=== PATIENT | female | born 1960 | race Two or more races ===

== ENCOUNTER 2017-01-18 14:36 | Inpatient (IN) | payer MEDICAID ==
[~2017-01-18] VITALS: Ht 170.2 cm; Wt 87.3 kg
[2017-01-18] VITALS (11 sets, daily range): BP systolic 113–143; BP diastolic 67–81
[2017-01-18] MEDS ORDERED: Naloxone 2 MG in D5W 500ml 498 ML IV SCH ×4 (15:00→22:34)
[2017-01-18] MEDS ORDERED: Naloxone 1mg/ml 2ml ONE ×3 (15:06→18:38)
[2017-01-18 15:23] LABS: BASOPHILS % (AUTO) 1.1 % (0.0-2.0); EOSINOPHILS % (AUTO) 3.8 % (0.0-3.0); LYMPHOCYTES % (AUTO) 36.1 % (20.0-45.0); MEAN CORPUSCULAR HEMOGLOBIN 30.7 PG (27.0-31.0); MEAN CORPUSCULAR HGB CONC 32.1 G/DL (32.0-36.0); MEAN CORPUSCULAR VOLUME 96 FL (80-99); MEAN PLATELET VOLUME 6.6 FL (6.5-10.1); MONOCYTES % (AUTO) 5.3 % (1.0-10.0); NEUTROPHILS % (AUTO) 53.6 % (45.0-75.0); PLATELET COUNT 258 K/UL (150-450); RED BLOOD COUNT 4.12 M/UL (4.20-5.40); RED CELL DISTRIBUTION WIDTH 12.5 % (11.6-14.8)
[2017-01-18] MEDS ORDERED: Naloxone 1mg/ml 2ml IVP ONE (15:30)
[2017-01-18 15:38] LABS: ACETAMINOPHEN < 10 ug/mL (10-30); ALANINE AMINOTRANSFERASE 20 U/L (3-33); ALBUMIN/GLOBULIN RATIO 1.4 (1.0-2.7); ALCOHOL < 10 mg/dL; ANION GAP 11 (5-15); ASPARTATE AMINO TRANSFERASE 24 U/L (5-40); CALCIUM 9.4 mg/dL (8.6-10.2); CARBON DIOXIDE 26 mEQ/L (20-30); CHLORIDE 106 mEQ/L (98-107); CREATININE 0.9 mg/dL (0.5-0.9); GLOMERULAR FILTRATION RATE > 60 mL/min (>60); HEMOLYSIS 58; POTASSIUM 4.2 mEQ/L (3.4-4.9); SODIUM 143 mEQ/L (135-145); TOTAL PROTEIN 6.8 g/dL (6.6-8.7); TROPONIN I < 0.30 ng/mL (<=0.30)
[2017-01-18 15:57] LABS: AMMONIA 12 umol/L (11-51)
[2017-01-18] MEDS ORDERED: UNOBMED (17:38)
--- NOTE | 2017-01-18 18:00 | Emergency Room Report ---
History of Present Illness General Chief Complaint: Altered Level of Consciousness Source: EMS Present Illness HPI Patient presents via EMS after alleged opiate overdose. Not breathing and blue when they got to patient. "Friends" performing CPR. Patient awakened some what with narcan. c/o chest pain (post CPR). Denies SI. Apparently had oxycodone with other medications. No other history available. Allergies: Coded Allergies: CODEINE (Verified Allergy, Unknown, 01/18/17) Patient History Limited by: medical condition Past Medical History: see triage record Social History: Reports: drug use, smoking Social History Narrative home Reviewed Nursing Documentation: PMH: Agreed, PSxH: Agreed Nursing Documentation-PMH Past Medical History: No History, Except For History Of Psychiatric Problem: Yes - Depression Review of Systems All Other Systems: limited Physical Exam Vital Signs Date Time Temp Pulse Resp B/P Pulse Ox O2 Delivery O2 Flow Rate FiO2 01/18/17 14:36 97.3 92 12 138/93 94 Room Air 01/18/17 17:20 2.0 Sp02 EP Interpretation: reviewed, abnormal - as interpreted by me General Appearance: lethargic, Stupor Head: normocephalic Eyes: bilateral eye PERRL - pinpoint, bilateral eye Scleral Injection ENT: moist mucus membranes - + gag Neck: supple Respiratory: lungs clear, other - chest wall pain, no crepetance, bradypnea Cardiovascular #1: regular rate, rhythm Cardiovascular #2: 2+ radial (R) Gastrointestinal: normal inspection, non tender, no mass, non-distended, abnormal bowel sounds - decreased Musculoskeletal: back normal Neurologic: sensory intact, motor weakness, other - stupor, does respond to pain, eyes closed, not vocalize Psychiatric: other - stupor Reflexes: 1+ knee (R), 1+ knee (L) Skin: warm/dry, other - pasty Procedures Critical Care Time Critical Care Time Total Critical Care Time: 30 min bedside evaluation and treatment excludes procedures (EKG). Reason for critical care: narcotic overdose, narcan drip, repeated evaluations and monitoring of respiratory status Possible complications: hypotension, hypertension, SD, shock, arrhythmias, metabolic acidosis, end organ damage, respiratory failure. Interventions: narcan push, narcan drip re-evaluations Course: Pt with opiate excess. Paramedics had improved mentation after narcan. Repeated obtundation in ED. Attempt to hold drip. Repeated bradypnea. Chest tender, possible fx fx contusions - no pneumo. No CHF. Discussed with admitting MD. Consultations: nursing staff, EMS, radiology Performed by: Dr. Spencer Tolerated: well condition = critical Medical Decision Making Diagnostic Impression: Primary Impression: Opiate overdose Qualified Codes: T40.601A - Poisoning by unspecified narcotics, accidental ( unintentional), initial encounter Additional Impressions: Polypharmacy Chest wall contusion - cannot exclude fracutre ER Course Patient presents after apparent overdose and complaining about chest pain to paramedics post narcan after CPR was performed on her. Differential includes polypharmacy overdose, rib contusion, rib fractures, anoxic brain injury, brain trauma amongst others. Since the time she's arrived in the emergency department she become more obtunded. Therefore Narcan will be given to the patient and also the patient will be started on Narcan drip. In addition CT, chest x-ray, EKG and labs will be performed. There is no history of intent to do self-harm. She is unable to answer this at this point to me. The patient's respiratory rate increased up to 18 after Narcan. The Narcan drip was begun. The patient's respiratory rate started to decline again and the Narcan drip was titrated upwards. CT and chest x-ray were unremarkable. Tox screen was positive for amphetamines and opiates. Patient was still quite obtunded even on Narcan drip and therefore was admitted to the intensive care unit. The patient was presented to Dr. Lopez. Laboratory Tests Test 01/18/17 14:53 01/18/17 15:25 01/18/17 15:45 White Blood Count 10.0 K/UL (4.8-10.8) Red Blood Count 4.12 M/UL (4.20-5.40) L Hemoglobin 12.6 G/DL (12.0-16.0) Hematocrit 39.4 % (37.0-47.0) Mean Corpuscular Volume 96 FL (80-99) Mean Corpuscular Hemoglobin 30.7 PG (27.0-31.0) Mean Corpuscular Hemoglobin Concent 32.1 G/DL (32.0-36.0) Red Cell Distribution Width 12.5 % (11.6-14.8) Platelet Count 258 K/UL (150-450) Mean Platelet Volume 6.6 FL (6.5-10.1) Neutrophils (%) (Auto) 53.6 % (45.0-75.0) Lymphocytes (%) (Auto) 36.1 % (20.0-45.0) Monocytes (%) (Auto) 5.3 % (1.0-10.0) Eosinophils (%) (Auto) 3.8 % (0.0-3.0) H Basophils (%) (Auto) 1.1 % (0.0-2.0) Sodium Level 143 mEQ/L (135-145) Potassium Level 4.2 mEQ/L (3.4-4.9) Chloride Level 106 mEQ/L (98-107) Carbon Dioxide Level 26 mEQ/L (20-30) Anion Gap 11 (5-15) Blood Urea Nitrogen 14 mg/dL (7-23) Creatinine 0.9 mg/dL (0.5-0.9) Estimate Glomerular Filtration Rate > 60 mL/min (>60) Glucose Level 99 mg/dL (74-106) Calcium Level 9.4 mg/dL (8.6-10.2) Total Bilirubin < 0.2 mg/dL (0.0-1.2) Aspartate Amino Transferase (AST) 24 U/L (5-40) Alanine Aminotransferase (ALT) 20 U/L (3-33) Alkaline Phosphatase 90 U/L (35-104) Ammonia 12 umol/L (11-51) Total Creatine Kinase 86 U/L (26-140) Troponin I < 0.30 ng/mL (<=0.30) Total Protein 6.8 g/dL (6.6-8.7) Albumin 4.0 g/dL (3.5-5.2) Globulin 2.8 g/dL Albumin/Globulin Ratio 1.4 (1.0-2.7) Salicylates Level < 1 mg/dL (10-30) L Acetaminophen Level < 10 ug/mL (10-30) L Serum Alcohol < 10 mg/dL Lactic Acid Level 1.40 mmol/L (0.66-2.22) Urine Opiates Screen Positive (NEGATIVE) H Urine Barbiturates Screen Negative (NEGATIVE) Phencyclidine (PCP) Screen Negative (NEGATIVE) Urine Amphetamines Screen Positive (NEGATIVE) H Urine Benzodiazepines Screen Negative (NEGATIVE) Urine Cocaine Screen Negative (NEGATIVE) Urine Marijuana (THC) Screen Negative (NEGATIVE) EKG Diagnostic Results Rate: normal Rhythm: NSR ST Segments: no acute changes Rhythm Strip Diag. Results EP Interpretation: yes Rhythm: NSR, no PVC's, no ectopy Chest X-Ray Diagnostic Results Chest X-Ray Diagnostic Results : Chest X-Ray Ordered: Yes # of Views/Limited/Complete: 1 View Indication: Other EP Interpretation: Yes Interpretation: no effusion, no pneumothorax, other - poor inspiration Impression: Other Interpreting ER Provider: Electronically signed by Gaurav Spencer MD CT/MRI/US Diagnostic Results CT/MRI/US Diagnostic Results : Imaging Test Ordered: head Impression no bleed, fx. Sinusitis Last Vital Signs Date Time Temp Pulse Resp B/P Pulse Ox O2 Delivery O2 Flow Rate FiO2 01/19/17 02:30 77 16 141/83 100 Nasal Cannula 3.0 01/19/17 00:00 98.7 01/18/17 22:22 32 Status: improved Disposition: ADMITTED INPATIENT Condition: Critical Referrals: [facility] (PCP) Gaurav Spencer M.D. Jan 18, 2017 18:00
[2017-01-18] MEDS ORDERED: GABAPENTIN800 MG ORAL (18:51)
[2017-01-18] MEDS ORDERED: BUPROPION XL300 MG ORAL (18:51)
[2017-01-18] MEDS ORDERED: LEVOTHYROXINE25 MCG ORAL (18:51)
[2017-01-18] MEDS ORDERED: NORCO 7.5-3251 EACH ORAL (18:51)
[2017-01-18] MEDS ORDERED: Zolpidem 5mg tab ORAL PRN (22:15)
[2017-01-18] MEDS: D5 1/2NS 1,000 ML IV SCH (23:19)
[2017-01-19] VITALS (28 sets, daily range): BP systolic 104–150; BP diastolic 61–94
[2017-01-19] MEDS: D5 1/2NS 1,000 ML IV SCH (08:11)
--- NOTE | 2017-01-19 08:13 | Diagnostic Imaging Report ---
Indication: ALOC Technique: Continuous helical CT scanning of the head was performed without intravenous contrast material. Axial and coronal 5 mm sections were generated. Dose: Total Dose Length Product - DLP [address] Dose Index - CTDIvol(s) 70.38 mGy. Comparison:None. Findings: The ventricular system is normal in size and configuration. There is no shift of midline structures. No abnormal extra-axial fluid collections are noted. There is no evidence of intracerebral bleeding. No other abnormal high or low density areas are noted within the brain. There is a calcified mass in the right maxillary sinus. Impression: Calcified concretion in the right maxillary sinus. Otherwise negative CT scan of the head without contrast material. The above report is concordant with preliminary reading by [employer] . The CT scanner at [facility] is accredited by the [employer] and the scans are performed using protocols designed to limit radiation exposure to as low as reasonably achievable to attain images of sufficient resolution adequate for diagnostic evaluation.
--- NOTE | 2017-01-19 09:04 | Diagnostic Imaging Report ---
Indication: Chest pain Technique: XRAY CHEST 1 V Comparison: None. Findings: The patient has taken a poor inspiration. The cardiomediastinal silhouette is normal. The lungs are clear. There is no evidence of pleural fluid. The bony structures are unremarkable. Impression: Poor inspiratory chest. Otherwise grossly negative.
--- NOTE | 2017-01-19 10:46 | History & Physical ---
History and Physical History & Physicial seen on 01/18/17 Dic # [id number] GABRIEL MARTINS Jan 19, 2017 10:46
--- NOTE | 2017-01-19 10:49 | General Progress Note ---
Assessment/Plan Problem List: (1) Opiate overdose ICD Codes: T40.601A - Poisoning by unspecified narcotics, accidental ( unintentional), initial encounter SNOMED: 577833869 Qualifiers: Qualified Codes: T40.601A - Poisoning by unspecified narcotics, accidental ( unintentional), initial encounter (2) Change in mental status ICD Codes: R41.82 - Altered mental status, unspecified SNOMED: 472338050 Status Narrative MS at baseline Assessment/Plan Start diet Out of ICU DC IVF Ambulate Subjective Allergies: Coded Allergies: CODEINE (Verified Allergy, Unknown, 01/18/17) Subjective awake and alert Objective Last 24 Hour Vital Signs Date Time Temp Pulse Resp B/P Pulse Ox O2 Delivery O2 Flow Rate FiO2 01/19/17 10:30 80 14 116/61 98 Nasal Cannula 3.0 01/19/17 10:00 75 14 134/66 97 Nasal Cannula 3.0 01/19/17 09:30 98.2 70 14 143/84 98 Nasal Cannula 3.0 01/19/17 09:00 72 13 133/76 98 Nasal Cannula 3.0 01/19/17 08:30 74 13 144/75 98 Nasal Cannula 3.0 01/19/17 08:00 72 01/19/17 08:00 74 13 130/71 98 Nasal Cannula 3.0 01/19/17 07:30 73 14 121/75 99 Nasal Cannula 3.0 01/19/17 07:00 74 15 141/72 97 Nasal Cannula 3.0 01/19/17 06:30 75 15 142/76 98 Nasal Cannula 3.0 01/19/17 06:00 75 16 138/71 97 Nasal Cannula 3.0 01/19/17 05:30 75 16 141/82 97 Nasal Cannula 3.0 01/19/17 05:00 75 17 133/80 98 Nasal Cannula 3.0 01/19/17 04:30 74 16 143/79 98 Nasal Cannula 3.0 01/19/17 04:00 73 01/19/17 04:00 98.6 76 17 137/74 100 Nasal Cannula 3.0 01/19/17 03:30 75 17 141/79 100 Nasal Cannula 3.0 01/19/17 03:00 77 19 137/68 100 Nasal Cannula 3.0 01/19/17 02:30 77 16 141/83 100 Nasal Cannula 3.0 01/19/17 02:00 78 16 133/78 99 Nasal Cannula 3.0 01/19/17 01:30 76 17 134/83 99 Nasal Cannula 3.0 01/19/17 01:00 77 15 150/86 98 Nasal Cannula 3.0 01/19/17 00:30 75 14 108/91 98 Nasal Cannula 3.0 01/19/17 00:00 98.7 76 17 134/76 98 Nasal Cannula 3.0 01/19/17 00:00 76 01/18/17 23:30 77 15 127/78 98 Nasal Cannula 3.0 01/18/17 23:00 78 14 126/71 97 Nasal Cannula 3.0 01/18/17 22:30 76 14 135/76 98 Nasal Cannula 3.0 01/18/17 22:22 Nasal Cannula 3.0 32 01/18/17 22:22 97 Nasal Cannula 3.0 32 01/18/17 22:00 77 17 130/78 96 Nasal Cannula 3.0 01/18/17 21:50 78 01/18/17 21:45 77 14 141/72 94 Nasal Cannula 3.0 01/18/17 21:30 97.6 76 15 136/78 97 Nasal Cannula 3.0 01/18/17 21:10 97.3 84 16 113/67 96 Room Air 2.0 01/18/17 20:28 97.3 84 16 113/67 96 Room Air 01/18/17 18:28 77 14 130/79 98 Nasal Cannula 2.0 01/18/17 17:20 81 13 125/74 97 Nasal Cannula 2.0 01/18/17 16:18 86 13 143/75 94 Room Air 01/18/17 15:02 85 15 Room Air 01/18/17 14:59 85 15 137/81 95 Room Air 01/18/17 14:36 97.3 92 12 138/93 94 Room Air Intake and Output 01/18/17 01/19/17 19:00 07:00 Intake Total 375.0 ml 1320 ml Output Total 950 ml Balance 375.0 ml 370 ml Intake Oral 50 ml IV Total 375.0 ml 1270 ml Output Urine Total 950 ml # Voids 1 Laboratory Tests 01/18/17 14:53: White Blood Count 10.0, Red Blood Count 4.12L, Hemoglobin 12.6, Hematocrit 39.4 , Mean Corpuscular Volume 96, Mean Corpuscular Hemoglobin 30.7, Mean Corpuscular Hemoglobin Concent 32.1, Red Cell Distribution Width 12.5, Platelet Count 258, Mean Platelet Volume 6.6, Neutrophils (%) (Auto) 53.6, Lymphocytes (% ) (Auto) 36.1, Monocytes (%) (Auto) 5.3, Eosinophils (%) (Auto) 3.8H, Basophils (%) (Auto) 1.1, Sodium Level 143, Potassium Level 4.2, Chloride Level 106, Carbon Dioxide Level 26, Anion Gap 11, Blood Urea Nitrogen 14, Creatinine 0.9, Estimat Glomerular Filtration Rate > 60, Glucose Level 99, Calcium Level 9.4, Total Bilirubin < 0.2, Aspartate Amino Transf (AST/SGOT) 24, Alanine Aminotransferase (ALT/SGPT) 20, Alkaline Phosphatase 90, Ammonia 12, Total Creatine Kinase 86, Troponin I < 0.30, Total Protein 6.8, Albumin 4.0, Globulin 2.8, Albumin/Globulin Ratio 1.4, Salicylates Level < 1L, Acetaminophen Level < 10L, Serum Alcohol < 10 01/18/17 15:25: Lactic Acid Level 1.40 01/18/17 15:45: Urine Opiates Screen PositiveH, Urine Barbiturates Screen Negative, Phencyclidine (PCP) Screen Negative, Urine Amphetamines Screen PositiveH, Urine Benzodiazepines Screen Negative, Urine Cocaine Screen Negative, Urine Marijuana (THC) Screen Negative Height (Feet): 5 Height (Inches): 7.00 Weight (Pounds): 186 Cardiovascular: normal rate Respiratory/Chest: lungs clear GABRIEL MARTINS Jan 19, 2017 10:49
[2017-01-19] MEDS ORDERED: D5 1/2NS 1000ml IV ONE ×2 (11:05→11:06)
[2017-01-19] MEDS ORDERED: NS 275ml ONE (11:06)
--- NOTE | 2017-01-19 11:30 | History and Physical Report ---
DATE OF ADMISSION: 01/18/2017 CHIEF COMPLAINT: The patient was brought in with altered mental status. HISTORY OF PRESENT ILLNESS: This is a 56-year-old female, who was brought in by paramedics after she overdosed on pain medications. The patient had CPR performed and was complaining of some chest pain. When I saw her in the emergency room, however, she was able to provide some history. Apparently, she was taking pain medication for neck pain. While she was in the emergency room, she was started on Narcan drip and she was supposed to go to intensive care unit. PAST MEDICAL HISTORY: Includes history of depression, otherwise unremarkable. She has pain syndrome as mentioned, requiring medications. SOCIAL HISTORY: Unobtainable. ALLERGIES: Codeine. REVIEW OF SYSTEMS: Noncontributory. PHYSICAL EXAMINATION: GENERAL: The patient is a 56-year-old female, in no acute distress. VITAL SIGNS: Blood pressure 138/93, pulse 92, respirations 12, and temperature 97.3 degrees. HEENT: [place] conjunctivae. Anicteric sclerae. NECK: Supple. LUNGS: Clear to auscultation. HEART: S1 and S2 without murmurs or rubs. ABDOMEN: Soft and nontender. EXTREMITIES: No cyanosis or edema. LABORATORY FINDINGS: CBC shows a WBC of 10,000, hematocrit 39.4, hemoglobin 12.6, and platelets 258,000. Chemistry panel shows serum sodium of 143, potassium 4.2, chloride 106, CO2 26, BUN is 14, and creatinine 0.9. Albumin is 4. Urine toxicology screen was positive for opiates as well as amphetamines. ASSESSMENT: This is a 56-year-old female, who is admitted for overdose on opiates. The patient was given Narcan. In the field, she had some CPR and complaining of some chest pain. Otherwise, her mental status has recovered significantly. PLAN: The patient will be admitted to the ICU on Narcan drip. Intravenous fluids. NPO for tonight. We will advance diet in the morning and transfer out of ICU if stable. Norbert Lopez M.D. DR: KELSEY JOB#: [id number] CC:
[2017-01-19] MEDS ORDERED: Zolpidem 5mg tab ORAL PRN (22:15)
[2017-01-20] VITALS: BP 119/65
[2017-01-20 04:00] VITALS: BP 121/75
[2017-01-20 09:39] VITALS: BP 110/80
[2017-01-20 12:13] VITALS: BP 124/87
--- NOTE | 2017-01-20 15:23 | Consultation ---
Consult Note Assessment/Plan Dc dictated # [id number] GABRIEL MARTINS Jan 20, 2017 15:23
--- NOTE | 2017-01-21 00:02 | Discharge Summary ---
DATE OF ADMISSION: 01/18/2017 DATE OF DISCHARGE: 01/20/2017 CHIEF COMPLAINT: The patient took too much pain medications. HISTORY OF PRESENT ILLNESS: This is a 56-year-old female, who was brought in by paramedics after she was found to be unresponsive. Apparently, CPR was performed on the field. The patient was found to have an overdose on opiates and she was started on Narcan drip in the emergency room and was admitted to intensive care unit. HOSPITAL COURSE: The patient was maintained on Narcan drip. Onto the following day, when I saw her in the intensive care unit her mental status was back to normal even in the ER, she had almost regained complete consciousness and was feeling okay. Subsequently, the patient was sent to the medical floor off Narcan drip. She was observed for another 24 hours. She did not have any respiratory issues and was feeling fine so she was sent home in stable condition. DISCHARGE DIAGNOSIS: Overdose on pain medications status post respiratory arrest. DISCHARGE MEDICATIONS: Please refer to discharge medication list. Norbert Lopez M.D. DR: TRUNG JOB#: [id number] CC:
--- NOTE | 2017-01-23 01:00 | Cardiology Report ---
APPROVED REPORT EKG Measurement Heart [id number] Normal sinus rhythm Possible Anterior infarct, age undetermined Abnormal ECG
== END 2017-01-20 15:50 | disposition home or self-care (01) | DRG 812 ==
LOC: EDBD 14:36 → EMR 16:30 → ICU 16:31 → EDBEDREQ 16:44 → 4W 01-19 14:30
DX: T40.601A Poisoning by unspecified narcotics, accidental (unintentional), initial encounter (principal); G89.4 Chronic pain syndrome; S20.219A Contusion of unspecified front wall of thorax, initial encounter; X58.XXXA Exposure to other specified factors, initial encounter; R41.82 Altered mental status, unspecified; Z88.6 Allergy status to analgesic agent
CPT/HCPCS: 36415; 70450; 71010; 80053; 80300; 80329; 82140; 82550; 83605; 84484; 85025; 87081; 93005; 94760; J2310